=== PATIENT | female | born 1995 ===

== ENCOUNTER → 2018-03-21 | Outpatient (CLI) | payer OTHER ==
[~2018-03-21] MED LIST: Bactrim Ds Tab1 EACH PO; CEPH500 PO; Cleocin HCl300 MG PO; Norco 5-325 Ta1 EACH PO; Zofran Odt8 MG SL
== END | disposition home or self-care (01) ==
LOC: LAB SHORT 14:28 → LAB 14:28
DX: R30.0 Dysuria (principal)
CPT/HCPCS: 87077; 87086; 87186

== ENCOUNTER → 2018-05-23 | Outpatient (CLI) | payer OTHER | END | disposition home or self-care (01) | LOC: LAB SHORT 16:05 → LAB 16:05 | DX: Z34.83 Encounter for supervision of other normal pregnancy, third trimester (principal); Z3A.35 35 weeks gestation of pregnancy | CPT/HCPCS: 87081; 87653 ==

== ENCOUNTER 2018-06-17 06:58 | Inpatient (IN) | payer OTHER ==
[2018-06-16 11:44] LABS: BASOPHILS ABSOLUTE AUTO 0.02 K/mm3 (0.00-0.23); BASOPHILS PERCENT AUTO 0 % (0-2); EOSINOPHILS ABSOLUTE AUTO 0.07 K/mm3 (0.00-0.68); EOSINOPHILS PERCENT AUTO 1 % (0-6); Hematocrit 38.3 % (33.0-51.0); IMMATURE GRAN ABSOLUTE AUTO 0.05 K/mm3 (0.00-0.10); IMMATURE GRAN PERCENT AUTO 1 % (0-1); LYMPHOCYTES ABSOLUTE AUTO 2.23 K/mm3 (0.84-5.20); LYMPHOCYTES PERCENT AUTO 24 % (21-46); MONOCYTES ABSOLUTE AUTO 0.62 K/mm3 (0.16-1.47); MONOCYTES PERCENT AUTO 7 % (4-13); Mean Corpuscular HGB 31.6 pg (26.0-34.0); Mean Corpuscular HGB Conc 33.9 g/dL (31.5-36.5); Mean Corpuscular Volume 93 fL (80-100); Mean Platelet Volume 10.6 fL (9.1-12.4); NEUTROPHILS ABSOLUTE AUTO 6.32 K/mm3 (1.96-9.15); NEUTROPHILS PERCENT AUTO 68 % (41-73); Platelet Count 178 K/mm3 (150-400); RDW Coefficient Variation 12.9 % (11.7-14.2); RDW Standard Deviation 44.1 fL (35.1-46.3); Red Blood Cell Count 4.11 M/mm3 (3.80-5.20); White Blood Cell Count 9.31 K/mm3 (4.00-11.30)
[~2018-06-17] VITALS: Ht 154.9 cm; Wt 0.2 kg
[~2018-06-17 06:58] MED LIST changes: +ACYC400; +Verotin-Gr Cap1 EACH
--- NOTE | 2018-06-17 09:25 | NUR ---
06/17/18 0925 Venecia Sims VIABLE FEMALE BORN AT 0909, 9/9. CORD BLOOD GIVEN TO LUISA GARRIDO. CORD GASES GIVEN TO JACQUELINE MORAN.
[2018-06-17 09:31] LABS: PCO2 Cord - Arterial 72.5 mmHg (40-50); pH Cord - Arterial 7.13 (7.28-7.35)
[2018-06-17 09:32] LABS: PO2 Cord - Arterial < 16 mmHg (16-20)
[2018-06-17 09:34] LABS: PCO2 Cord - Venous 43.1 mmHg (40-50); PO2 Cord - Venous 23.6 mmHg (28-32)
--- NOTE | 2018-06-17 11:06 | NUR ---
OUT TO ROOM VIA BED REPORT TO Maksim BLOOD RN
--- NOTE | 2018-06-17 18:08 | NUR ---
CALLED DR. SAGASTUME TO UPDATE REGARDING PT'S INCREASING PAIN IN HER BACK. PT REPORTS HER PAIN IS WORSE WITH BREATHING AND BEGAN WHEN SHE STARTED USING HER SPIROMETER. VITALS STABLE. PULSE OX-98%. PT REPORTS 8/10 PAIN ON THE RIGHT UPPER REGION OF HER BACK. ORDERS TO GIVE 25MCG OF FENTANYL NOW AND 5MG OF ROXICODONE Q2 PRN[address] DR[address] SAGASTUME WAS ALSO UPDATED ON PT'S INCREASED DRAINAGE ON INCISIONAL DRESSING AND ADVISED TO PUT ON A PRESSURE DRESSING.
[2018-06-18 05:38] LABS: BASOPHILS ABSOLUTE AUTO 0.01 K/mm3 (0.00-0.23); BASOPHILS PERCENT AUTO 0 % (0-2); EOSINOPHILS ABSOLUTE AUTO 0.04 K/mm3 (0.00-0.68); EOSINOPHILS PERCENT AUTO 1 % (0-6); Hematocrit 23.8 % (33.0-51.0); Hemoglobin 8.1 g/dL (11.5-16.0); IMMATURE GRAN ABSOLUTE AUTO 0.02 K/mm3 (0.00-0.10); IMMATURE GRAN PERCENT AUTO 0 % (0-1); LYMPHOCYTES ABSOLUTE AUTO 2.13 K/mm3 (0.84-5.20); LYMPHOCYTES PERCENT AUTO 29 % (21-46); MONOCYTES ABSOLUTE AUTO 0.65 K/mm3 (0.16-1.47); MONOCYTES PERCENT AUTO 9 % (4-13); Mean Corpuscular Volume 94 fL (80-100); Mean Platelet Volume 10.4 fL (9.1-12.4); NEUTROPHILS ABSOLUTE AUTO 4.63 K/mm3 (1.96-9.15); NEUTROPHILS PERCENT AUTO 62 % (41-73); Platelet Count 107 K/mm3 (150-400); RDW Coefficient Variation 13.2 % (11.7-14.2); RDW Standard Deviation 45.6 fL (35.1-46.3); Red Blood Cell Count 2.53 M/mm3 (3.80-5.20); White Blood Cell Count 7.48 K/mm3 (4.00-11.30)
--- NOTE | 2018-06-18 06:54 | NUR ---
SLIGHT JUICE RED BLOOD NOTED FROM INCISION SITE AFTER REMOVING PATIENTS BANDAGE, AFTER SHOWER. PAD PLACED OVER SITE. REASSESSED ABOUT AN HOUR LATER AND MINIMAL BLOOD NOTED ON THE PAD; AND BLEEDING APPEARS TO HAVE STOPPED. LABS DRAWN THIS MORNING. DROPS IN H&H AND PLATLETS NOTED. INFORMED [employer]ER. WILL ALSO PASS ON DAY SHIFT RN.
[2018-06-19 05:30] LABS: BASOPHILS ABSOLUTE AUTO 0.01 K/mm3 (0.00-0.23); BASOPHILS PERCENT AUTO 0 % (0-2); EOSINOPHILS ABSOLUTE AUTO 0.09 K/mm3 (0.00-0.68); EOSINOPHILS PERCENT AUTO 1 % (0-6); Hematocrit 22.9 % (33.0-51.0); Hemoglobin 7.6 g/dL (11.5-16.0); IMMATURE GRAN ABSOLUTE AUTO 0.06 K/mm3 (0.00-0.10); IMMATURE GRAN PERCENT AUTO 1 % (0-1); LYMPHOCYTES ABSOLUTE AUTO 1.89 K/mm3 (0.84-5.20); LYMPHOCYTES PERCENT AUTO 24 % (21-46); MONOCYTES ABSOLUTE AUTO 0.48 K/mm3 (0.16-1.47); MONOCYTES PERCENT AUTO 6 % (4-13); Mean Corpuscular HGB 32.2 pg (26.0-34.0); Mean Corpuscular HGB Conc 33.2 g/dL (31.5-36.5); Mean Platelet Volume 9.8 fL (9.1-12.4); NEUTROPHILS ABSOLUTE AUTO 5.24 K/mm3 (1.96-9.15); NEUTROPHILS PERCENT AUTO 67 % (41-73); Platelet Count 122 K/mm3 (150-400); RDW Coefficient Variation 13.5 % (11.7-14.2); RDW Standard Deviation 47.7 fL (35.1-46.3); Red Blood Cell Count 2.36 M/mm3 (3.80-5.20); White Blood Cell Count 7.77 K/mm3 (4.00-11.30)
[2018-06-19 05:35] LABS: Mean Corpuscular Volume 97 fL (80-100)
[2018-06-19] MEDS ORDERED: Percocet 5-3251 EACH (12:42)
[2018-06-19] MEDS ORDERED: IBUP800 PO (12:42)
--- NOTE | 2018-06-19 12:54 | NUR ---
PT REFUSED MMR VACCINE.
--- NOTE | 2018-06-19 15:01 | NUR ---
PT DISCHARGED TO HOME. DISCHARGE INSTRUCTIONS GIVEN. NO QUESTIONS OR CONCERNS AT THIS TIME. PRESCRIPTION GIVEN TO PT.
--- NOTE | 2018-06-21 13:51 | NUR ---
NOTIFIED DR SAGASTUME'S OFFICE PATIENT WAS A NO SHOW FOR PPFU - HX OF PP DEPRESSION - NOT ABLE TO CONTACT VIA PHONE
== END 2018-06-19 15:05 | disposition home or self-care (01) | DRG 787 ==
LOC: BC 06:58
PROVIDERS: ADMIT Obstetrics & Gynecology
PROC: 6A550ZT Pheresis of Cord Blood Stem Cells, Single (ICD-10-PCS; 2018-06-17)
PROC: 10D00Z1 Extraction of Products of Conception, Low, Open Approach (ICD-10-PCS; principal; 2018-06-17 08:45)
DX: O34.211 Maternal care for low transverse scar from previous cesarean delivery (principal); O98.52 Other viral diseases complicating childbirth; Z3A.39 39 weeks gestation of pregnancy; Z37.0 Single live birth; O99.89 Other specified diseases and conditions complicating pregnancy, childbirth and the puerperium
CPT/HCPCS: 36415; 82803; 85025; 86850; 86900; 86901; 90707; J0694; J1885; J2405; J2590; J2765; J3010; J7120

== ENCOUNTER → 2019-07-27 | Outpatient (CLI) | payer OTHER ==
[~2019-07-27] MED LIST changes: +IBUP800 PO; +Percocet 5-3251 EACH
== END | disposition home or self-care (01) ==
LOC: LAB SHORT 18:32 → LAB 18:32
PROVIDERS: Obstetrics & Gynecology
DX: Z12.4 Encounter for screening for malignant neoplasm of cervix (principal)
CPT/HCPCS: G0123

== ENCOUNTER → 2019-08-11 | Outpatient (CLI) | payer OTHER | END | disposition home or self-care (01) | LOC: LAB SHORT 08:30 → LAB 08:30 | DX: N93.9 Abnormal uterine and vaginal bleeding, unspecified (principal) | CPT/HCPCS: 87070; 87205 ==

== ENCOUNTER 2020-09-21 17:02 | Emergency (ER) | payer OTHER ==
[~2020-09-21] VITALS: Ht 154.9 cm; Wt 52.2 kg
[2020-09-21 18:00] LABS: Source, Urine Clean Catch
[2020-09-21 18:01] LABS: BASOPHILS ABSOLUTE AUTO 0.02 K/mm3 (0.00-0.23); BASOPHILS PERCENT AUTO 0 % (0-2); EOSINOPHILS PERCENT AUTO 2 % (0-6); Hematocrit 40.7 % (33.0-51.0); Hemoglobin 13.4 g/dL (11.5-16.0); IMMATURE GRAN ABSOLUTE AUTO 0.01 K/mm3 (0.00-0.10); IMMATURE GRAN PERCENT AUTO 0 % (0-1); LYMPHOCYTES ABSOLUTE AUTO 2.07 K/mm3 (0.84-5.20); LYMPHOCYTES PERCENT AUTO 30 % (21-46); MONOCYTES ABSOLUTE AUTO 0.42 K/mm3 (0.16-1.47); MONOCYTES PERCENT AUTO 6 % (4-13); Mean Corpuscular HGB 30.3 pg (26.0-34.0); Mean Corpuscular HGB Conc 32.9 g/dL (31.5-36.5); Mean Corpuscular Volume 92 fL (80-100); Mean Platelet Volume 10.7 fL (9.1-12.4); NEUTROPHILS ABSOLUTE AUTO 4.27 K/mm3 (1.96-9.15); NEUTROPHILS PERCENT AUTO 62 % (41-73); Platelet Count 173 K/mm3 (150-400); RDW Coefficient Variation 12.3 % (11.7-14.2); RDW Standard Deviation 41.8 fL (35.1-46.3); Red Blood Cell Count 4.42 M/mm3 (3.80-5.20); White Blood Cell Count 6.89 K/mm3 (4.00-11.30)
[2020-09-21 18:07] LABS: Appearance, Urine Clear (Clear); Bilirubin, Urine Neg (Neg); Blood, Urine Neg (Neg); Color, Urine Yellow (P-Yellow); Glucose Qualitative, Urine Neg (Neg); Ketones, Urine Neg (Neg); Leukocyte Esterase, Urine Neg (Neg); Nitrite, Urine Neg (Neg); Protein, Urine Neg (Neg); Urobilinogen, Urine NORM (Normal)
[2020-09-21 18:29] LABS: Alanine Aminotransfer (ALT/SGP 29 U/L (12-78); Albumin/Globulin Ratio 1.2 (0.8-1.8); Alk Phos 80 U/L (50-136); Anion Gap 2 mmol/L (6-16); Aspartate Aminotrans (AST/SGOT 12 U/L (12-37); Beta HCG, Quantitative, Serum <1 mIU/mL (0-3); Bilirubin, Total 0.3 mg/dL (0.1-1.0); Blood Urea Nitrogen 16 mg/dL (8-24); Bun/Creatinine Ratio 33.1 (12.0-20.0); CO2, Blood 28 mmol/L (21-32); Calcium, Blood 8.9 mg/dL (8.5-10.1); Chloride, Blood 106 mmol/L (98-108); Creatinine, Blood 0.48 mg/dL (0.40-1.00); Globulin, Blood 3.4 g/dL (2.2-4.0); Glomerular Filtration Rate >60 (60-); Glucose, Blood 96 mg/dL (70-99); Potassium, Blood 4.4 mmol/L (3.5-5.5); Sodium, Blood 136 mmol/L (136-145); Total Protein, Blood 7.4 g/dL (6.4-8.2)
== END 2020-09-21 21:58 | disposition home or self-care (01) ==
LOC: ER 17:02
PROVIDERS: Physician Assistant
DX: N94.6 Dysmenorrhea, unspecified (principal); N92.5 Other specified irregular menstruation; Z79.899 Other long term (current) drug therapy
CPT/HCPCS: 36415; 76856; 80053; 81003; 83690; 84702; 85025; 96361; 96374; 96375; 99284-25; J1885; J2405; J7030

== ENCOUNTER → 2020-12-24 | Outpatient (CLI) | payer OTHER ==
[2020-12-24 09:09] LABS: BASOPHILS ABSOLUTE AUTO 0.02 K/mm3 (0.00-0.23); BASOPHILS PERCENT AUTO 0 % (0-2); EOSINOPHILS ABSOLUTE AUTO 0.15 K/mm3 (0.00-0.68); EOSINOPHILS PERCENT AUTO 2 % (0-6); Hematocrit 37.7 % (33.0-51.0); IMMATURE GRAN PERCENT AUTO 0 % (0-1); LYMPHOCYTES ABSOLUTE AUTO 2.14 K/mm3 (0.84-5.20); LYMPHOCYTES PERCENT AUTO 35 % (21-46); MONOCYTES ABSOLUTE AUTO 0.37 K/mm3 (0.16-1.47); MONOCYTES PERCENT AUTO 6 % (4-13); Mean Corpuscular HGB 30.9 pg (26.0-34.0); Mean Corpuscular HGB Conc 34.5 g/dL (31.5-36.5); Mean Corpuscular Volume 90 fL (80-100); Mean Platelet Volume 10.5 fL (9.1-12.4); NEUTROPHILS ABSOLUTE AUTO 3.45 K/mm3 (1.96-9.15); NEUTROPHILS PERCENT AUTO 56 % (41-73); Platelet Count 177 K/mm3 (150-400); RDW Coefficient Variation 11.9 % (11.7-14.2); RDW Standard Deviation 38.4 fL (35.1-46.3); Red Blood Cell Count 4.21 M/mm3 (3.80-5.20); White Blood Cell Count 6.13 K/mm3 (4.00-11.30)
== END | disposition home or self-care (01) ==
LOC: LAB 09:06 → LAB SHORT 09:06
PROVIDERS: Physician Assistant
DX: R10.9 Unspecified abdominal pain (principal)
CPT/HCPCS: 85025